=== PATIENT | female | born 1970 | race Caucasian/White ===

== ENCOUNTER 2017-01-02 20:57 | Emergency (ER) | payer MEDICAID ==
[~2017-01-02] VITALS: Ht 162.6 cm; Wt 99.8 kg
[2017-01-02 21:18] VITALS: BP_SYST 153
[2017-01-02 22:00] VITALS: BP_SYST 139
== END 2017-01-02 22:00 | disposition home or self-care (01) ==
LOC: SED 20:57
DX: L50.9 Urticaria, unspecified (principal); B36.0 Pityriasis versicolor; F41.9 Anxiety disorder, unspecified; I10 Essential (primary) hypertension; Z90.710 Acquired absence of both cervix and uterus; Z88.1 Allergy status to other antibiotic agents
CPT/HCPCS: 99283

== ENCOUNTER 2019-07-01 17:06 | Emergency (ER) | payer MEDICAID ==
[~2019-07-01] VITALS: Ht 162.6 cm; Wt 101.2 kg
[2019-07-01 17:20] VITALS: BP_SYST 153
--- NOTE | 2019-07-01 17:28 | NUR ---
Patient triaged and placed in waiting room. VSS and patient appears in no acute distress at this time. Accompanied by self, awaiting available bed, and MD notified of need for MSE.
--- NOTE | 2019-07-01 17:35 | NUR ---
Patient to ER bed 08 for evaluation. Side rails up.
--- NOTE | 2019-07-01 17:37 | NUR ---
Pt AAOx4 ambulated into ED c/o chest congestion, sinus headache, productive cough x 1 week, new onset decreased appetite, has been taking tramadol with relief. Denies N/V/D/abd pain. No other injuries/complaints per pt/noted. Will continue to monitor.
--- NOTE | 2019-07-01 17:40 | NUR ---
ER Dr. Rosales at bedside examining patient.
[2019-07-01] MEDS ORDERED: ALBUTEROL SULFATE 0.083% 2.5 MG/3 ML VIAL.NEB INH ONE (17:45)
[2019-07-01] MEDS ORDERED: IPRATROPIUM BROM 0.5 MG/2.5 ML VIAL.NEB (ATROVENT) INH ONE (17:45)
--- NOTE | 2019-07-01 17:50 | NUR ---
flu swab collected and sent to the lab.
--- NOTE | 2019-07-01 18:10 | NUR ---
pt getting breathing tx.
--- NOTE | 2019-07-01 19:00 | NUR ---
Report given to Silvio LUND. Pt is in stable condition
[2019-07-01 19:17] VITALS: BP_SYST 133
--- NOTE | 2019-07-01 19:17 | NUR ---
Patient given written and verbal discharge instructions and verbalizes understanding. ER MD discussed with patient the results and treatment provided. Patient in stable condition. ID arm band removed. Rx of Tessalon and Guaifenesin given. Patient educated on pain management and to follow up with PMD. Pain Scale 0. Opportunity for questions provided and answered. Medication side effect fact sheet provided.
== END 2019-07-01 19:17 | disposition home or self-care (01) ==
LOC: SED 17:06
DX: J06.9 Acute upper respiratory infection, unspecified (principal); J45.909 Unspecified asthma, uncomplicated; I10 Essential (primary) hypertension; F32.9 Major depressive disorder, single episode, unspecified; F41.9 Anxiety disorder, unspecified; Z90.710 Acquired absence of both cervix and uterus; Z98.890 Other specified postprocedural states; Z88.1 Allergy status to other antibiotic agents; Z88.6 Allergy status to analgesic agent; Z88.8 Allergy status to other drugs, medicaments and biological substances; Z88.7 Allergy status to serum and vaccine
CPT/HCPCS: 71046; 86710; 93005; 94640; 99284; J7613; 36415

== ENCOUNTER 2019-08-25 20:26 | Emergency (ER) | payer MEDICAID ==
[~2019-08-25] VITALS: Ht 162.6 cm; Wt 102.5 kg
[2019-08-25 20:51] VITALS: BP_SYST 163
--- NOTE | 2019-08-25 20:57 | NUR ---
Patient triaged and placed in waiting room. VSS and patient appears in no acute distress at this time. Accompanied by daughter, awaiting available bed, and MD notified of need for MSE.
--- NOTE | 2019-08-25 22:57 | NUR ---
Pt ambulatory to bed 2 for evaluation
--- NOTE | 2019-08-25 23:00 | NUR ---
Dr. Gallardo bedside for pt eval
--- NOTE | 2019-08-25 23:10 | NUR ---
Pt BIB family to ED with history of asthma and fibromyalgia C/O 3 day history of gradual onset, mild sinus pressure. Symptoms associated with cough, bilateral ear pain and headache. Patient reports that she had nausea and vomiting several days ago but states that his symptoms have improved. Patient takes Tramadol for her fibromyalgia No other complaints noted VSS no s/s of acute distress Resting on gurney rails up
[2019-08-25] MEDS ORDERED: KETOROLAC TROMETHAMINE 60 MG/2 ML VIAL IM ONE (23:45)
[2019-08-25] MEDS ORDERED: PREDNISONE 20 MG TABLET PO ONE (23:45)
[2019-08-26 00:20] VITALS: BP_SYST 145
--- NOTE | 2019-08-26 00:20 | NUR ---
Patient given written and verbal discharge instructions and verbalizes understanding. ER MD discussed with patient the results and treatment provided. Patient in stable condition. ID arm band removed. Rx of Albuterol Syrup, Prednisone, Zithromax and Tylenol with Codeine given. Patient educated on pain management and to follow up with PMD. Pain Scale 0/10 Opportunity for questions provided and answered. Medication side effect fact sheet provided.
== END 2019-08-26 00:20 | disposition home or self-care (01) ==
LOC: SED 20:26
DX: J32.9 Chronic sinusitis, unspecified (principal); J06.9 Acute upper respiratory infection, unspecified; R51 Headache; J45.909 Unspecified asthma, uncomplicated; I10 Essential (primary) hypertension; N28.9 Disorder of kidney and ureter, unspecified; F41.9 Anxiety disorder, unspecified; Z88.6 Allergy status to analgesic agent; Z88.1 Allergy status to other antibiotic agents
CPT/HCPCS: 86710; 99283; J7512; 36415; J1885

== ENCOUNTER 2020-01-19 20:30 | Emergency (ER) | payer MEDICAID ==
[~2020-01-19] VITALS: Ht 167.6 cm; Wt 104.3 kg
[2020-01-19 20:45] VITALS: BP_SYST 146
--- NOTE | 2020-01-19 20:50 | NUR ---
Patient to ER H2 for evaluation.
--- NOTE | 2020-01-19 20:55 | NUR ---
Pt C/O back and abdominal pain S/P fall yesterday evening. Pt denies any LOC, headache, nausea or vomiting. Pt is ambulatory and states pain is progressively worse this evening. Reports taking Martin prior to arrival.
--- NOTE | 2020-01-19 20:58 | NUR ---
ER Dr. Rosales at bedside examining patient.
--- NOTE | 2020-01-19 21:00 | NUR ---
# 20 gauge angiocath placed to LT AC. Use of asceptic technique. Opsite placed over site. Blood return noted. Blood for lab drawn from site. Flushed with 10 cc of normal saline. No evidence of infiltration noted. Patient tolerated well.
[2020-01-19 21:05] LABS: BASOPHILS % (AUTO) 0.3 % (0.0-2.0); EOSINOPHILS # (AUTO) 0.3 K/uL (0.0-0.4); EOSINOPHILS % (AUTO) 2.2 % (0.0-4.0); HEMATOCRIT 41.1 % (36-48); HEMOGLOBIN 13.7 g/dL (12.0-16.0); LYMPHOCYTES # (AUTO) 3.1 K/uL (1.0-5.5); LYMPHOCYTES % (AUTO) 27.8 % (20.5-51.5); MEAN CORPUSCULAR HEMOGLOBIN 33 pg (27-31); MEAN CORPUSCULAR HGB CONC 33 % (32-36); MEAN CORPUSCULAR VOLUME 98 fL (79.0-98.0); MONOCYTES # (AUTO) 0.8 K/uL (0.0-1.0); MONOCYTES % (AUTO) 6.9 % (1.7-9.3); NEUTROPHILS # (AUTO) 7.1 K/uL (1.8-7.7); NEUTROPHILS % (AUTO) 62.8 % (40.0-70.0); PLATELET COUNT (AUTO) 296 K/uL (130-430); RED BLOOD CELL COUNT(AUTO) 4.21 MIL/uL (4.2-6.2); RED CELL DISTRIBUTION WIDTH 12.8 % (9.0-15.0); WHITE BLOOD COUNT (AUTO) 11.3 K/uL (4.8-10.8)
[2020-01-19] MEDS ORDERED: IOHEXOL 100 ML IV ONE (21:18)
[2020-01-19 21:23] LABS: CALCIUM 10.8 mg/dL (8.4-11.0); CREATININE 1.01 mg/dL (0.55-1.30); POTASSIUM 3.2 mmol/L (3.5-5.1)
--- NOTE | 2020-01-19 22:00 | NUR ---
Pt is sitting comfortably in chair, will continue to monitor.
--- NOTE | 2020-01-19 23:45 | NUR ---
MD Rosales discussing results with patient
[2020-01-20 00:12] VITALS: BP_SYST 138
== END 2020-01-20 00:12 | disposition home or self-care (01) ==
LOC: SED 20:30
DX: S32.018A Other fracture of first lumbar vertebra, initial encounter for closed fracture (principal); S32.028A Other fracture of second lumbar vertebra, initial encounter for closed fracture; J45.909 Unspecified asthma, uncomplicated; I10 Essential (primary) hypertension; F41.9 Anxiety disorder, unspecified; N28.9 Disorder of kidney and ureter, unspecified; Z88.1 Allergy status to other antibiotic agents; Z88.6 Allergy status to analgesic agent; Z88.8 Allergy status to other drugs, medicaments and biological substances; W01.0XXA Fall on same level from slipping, tripping and stumbling without subsequent striking against object, initial encounter; Y93.89 Activity, other specified; Y92.89 Other specified places as the place of occurrence of the external cause; Y99.8 Other external cause status
CPT/HCPCS: 36415; 72128; 72131; 74177; 80048; 85025; 99285; Q9967

== ENCOUNTER 2021-01-22 22:06 | Emergency (ER) | payer MEDICAID ==
[~2021-01-22] VITALS: Ht 162.6 cm; Wt 104.3 kg
[2021-01-22 22:12] VITALS: BP_SYST 159
[2021-01-23 02:30] VITALS: BP_SYST 159
== END 2021-01-23 02:30 | disposition home or self-care (01) ==
LOC: SED 22:06
DX: S83.92XA Sprain of unspecified site of left knee, initial encounter (principal); S93.402A Sprain of unspecified ligament of left ankle, initial encounter; S70.02XA Contusion of left hip, initial encounter; I10 Essential (primary) hypertension; J45.909 Unspecified asthma, uncomplicated; Z88.1 Allergy status to other antibiotic agents; Z88.6 Allergy status to analgesic agent; Z88.8 Allergy status to other drugs, medicaments and biological substances; V03.90XA Pedestrian on foot injured in collision with car, pick-up truck or van, unspecified whether traffic or nontraffic accident, initial encounter; Y93.89 Activity, other specified; Y92.89 Other specified places as the place of occurrence of the external cause; Y99.8 Other external cause status
CPT/HCPCS: 72170-TC; 73552; 73564; 73590-TC; 99284

== ENCOUNTER 2021-01-26 17:43 | Emergency (ER) | payer MEDICAID ==
[~2021-01-26] VITALS: Ht 162.6 cm; Wt 104.3 kg
[2021-01-26 17:43] VITALS: BP_SYST 161
[2021-01-26 19:01] LABS: BASOPHILS # (AUTO) 0.1 K/uL (0.0-0.2); BASOPHILS % (AUTO) 0.6 % (0.0-2.0); EOSINOPHILS # (AUTO) 0.2 K/uL (0.0-0.4); EOSINOPHILS % (AUTO) 2.2 % (0.0-4.0); HEMATOCRIT 40.4 % (36-48); HEMOGLOBIN 13.9 g/dL (12.0-16.0); LYMPHOCYTES # (AUTO) 2.7 K/uL (1.0-5.5); LYMPHOCYTES % (AUTO) 26.3 % (20.5-51.5); MEAN CORPUSCULAR HEMOGLOBIN 33 pg (27-31); MEAN CORPUSCULAR HGB CONC 34 % (32-36); MEAN CORPUSCULAR VOLUME 96 fL (79.0-98.0); MONOCYTES # (AUTO) 0.9 K/uL (0.0-1.0); MONOCYTES % (AUTO) 8.9 % (1.7-9.3); NEUTROPHILS # (AUTO) 6.3 K/uL (1.8-7.7); PLATELET COUNT (AUTO) 315 K/uL (130-430); RED BLOOD CELL COUNT(AUTO) 4.22 MIL/uL (4.2-6.2); RED CELL DISTRIBUTION WIDTH 12.9 % (9.0-15.0); WHITE BLOOD COUNT (AUTO) 10.2 K/uL (4.8-10.8)
[2021-01-26 19:20] LABS: CALCIUM 10.3 mg/dL (8.4-11.0); CREATININE 0.83 mg/dL (0.55-1.30); POTASSIUM 4.1 mmol/L (3.5-5.1)
[2021-01-26 19:24] LABS: INR 0.9 (0.8-1.2); PROTHROMBIN TIME 9.8 SECS (9.5-12.5)
[2021-01-26 19:26] LABS: ALBUMIN 3.4 g/dL (3.4-4.8); TOTAL BILIRUBIN 0.2 mg/dL (0.0-1.0)
[2021-01-26 19:48] LABS: C-REACTIVE PROTEIN QUANT 2.5 mg/dL (0-0.5)
[2021-01-26 20:45] VITALS: BP_SYST 161
== END 2021-01-26 20:45 | disposition home or self-care (01) ==
LOC: SED 17:43
DX: S92.322A Displaced fracture of second metatarsal bone, left foot, initial encounter for closed fracture (principal); I10 Essential (primary) hypertension; J45.909 Unspecified asthma, uncomplicated; Z88.1 Allergy status to other antibiotic agents; Z88.6 Allergy status to analgesic agent; Z88.7 Allergy status to serum and vaccine; W22.8XXA Striking against or struck by other objects, initial encounter; Y93.89 Activity, other specified; Y92.89 Other specified places as the place of occurrence of the external cause; Y99.8 Other external cause status
CPT/HCPCS: 36415; 80053; 83605; 85025; 85610-TC; 85730-TC; 86140; 93971; 99284

== ENCOUNTER 2021-11-21 16:41 | Emergency (ER) | payer MEDICAID ==
[~2021-11-21] VITALS: Ht 162.6 cm; Wt 106.6 kg
[2021-11-21 16:56] VITALS: BP_SYST 123
[2021-11-21] MEDS ORDERED: IPRATROPIUM BROM 0.5 MG/2.5 ML VIAL.NEB (ATROVENT) INH ONE (17:15)
[2021-11-21] MEDS ORDERED: predniSONE 20 MG TABLET PO ONE (17:15)
[2021-11-21] MEDS ORDERED: ALBUTEROL SULFATE 0.083% 2.5 MG/3 ML VIAL.NEB INH ONE (17:15)
[2021-11-21] MEDS ORDERED: PRED20TA PO (17:54)
[2021-11-21 18:05] VITALS: BP_SYST 123
== END 2021-11-21 18:05 | disposition home or self-care (01) ==
LOC: SED 16:41
DX: J45.901 Unspecified asthma with (acute) exacerbation (principal); I10 Essential (primary) hypertension; Z88.1 Allergy status to other antibiotic agents; Z88.6 Allergy status to analgesic agent; Z88.8 Allergy status to other drugs, medicaments and biological substances; Z79.899 Other long term (current) drug therapy
CPT/HCPCS: 71046; 94640; 94760; 99283; J7512; J7613

== ENCOUNTER 2022-01-25 22:59 | Inpatient (IN) | payer MEDICAID ==
[~2022-01-25] VITALS: Ht 162.6 cm; Wt 97.5 kg
[~2022-01-25 22:59] MED LIST: PRED20TA PO
[2022-01-25 23:10] VITALS: BP_SYST 178
--- NOTE | 2022-01-25 23:10 | NUR ---
Pt arrives per BLS, placed to ER bed 02, to gown and clinical research monitor. Pt from home with c/o N/V with H/A progressively worsening since surgery last month to drain CSF at base of neck at [facility]. Pt AAOx4 with no focal neurodeficits noted. B/P 178/101. Pt with hx HTN, unable to keep B/P meds down r/t vomiting.
--- NOTE | 2022-01-25 23:25 | NUR ---
Dr. Rosales at bedside to assess pt.
[2022-01-25] MEDS ORDERED: MORPHINE 4 MG INJ. 4 MG/ML VIAL IVP ONE (23:45)
[2022-01-25] MEDS ORDERED: ONDANSETRON HCL 4 MG/2 ML VIAL ONE (23:55)
--- NOTE | 2022-01-26 00:34 | NUR ---
Contacted [facility] ([phone]), spoke with KEVON Chun on M/S unit. Exchange number obtained for Dr. Hero Garza, Neurosurgeon who performed procedure on pt. [phone]
[2022-01-26] MEDS ORDERED: METOCLOPRAMIDE HCL 10 MG/2 ML VIAL IVP ONE (00:45)
[2022-01-26 00:59] LABS: HEMOGLOBIN 15.9 g/dL (12.0-16.0)
[2022-01-26 01:01] LABS: CALCIUM 11.1 mg/dL (8.4-11.0); CREATININE 0.92 mg/dL (0.55-1.30)
[2022-01-26 01:07] LABS: ALBUMIN 3.9 g/dL (3.4-4.8); TOTAL BILIRUBIN 0.5 mg/dL (0.0-1.0)
[2022-01-26 01:10] LABS: INR 1.1 (0.8-1.2); PROTHROMBIN TIME 10.8 SECS (9.5-12.5)
[2022-01-26 01:16] LABS: POTASSIUM 2.9 mmol/L (3.5-5.1)
[2022-01-26 01:26] LABS: BASOPHILS # (AUTO) 0.1 K/uL (0.0-0.2); BASOPHILS % (AUTO) 0.5 % (0.0-2.0); EOSINOPHILS # (AUTO) 0.1 K/uL (0.0-0.4); EOSINOPHILS % (AUTO) 0.5 % (0.0-4.0); HEMATOCRIT 45.8 % (36-48); LYMPHOCYTES # (AUTO) 1.7 K/uL (1.0-5.5); LYMPHOCYTES % (AUTO) 14.3 % (20.5-51.5); MEAN CORPUSCULAR HEMOGLOBIN 33 pg (27-31); MEAN CORPUSCULAR HGB CONC 35 % (32-36); MEAN CORPUSCULAR VOLUME 96 fL (79.0-98.0); MONOCYTES # (AUTO) 0.8 K/uL (0.0-1.0); NEUTROPHILS % (AUTO) 77.7 % (40.0-70.0); PLATELET COUNT (AUTO) 306 K/uL (130-430); RED BLOOD CELL COUNT(AUTO) 4.77 MIL/uL (4.2-6.2); RED CELL DISTRIBUTION WIDTH 13.3 % (9.0-15.0); WHITE BLOOD COUNT (AUTO) 11.6 K/uL (4.8-10.8)
[2022-01-26] MEDS ORDERED: MAGNESIUM SULFATE 50 ML IV ONE (01:30)
[2022-01-26] MEDS ORDERED: KCL 40 mEq in 100 mL (PREMIX) 100 ML IV ONE (01:30)
[2022-01-26] MEDS ORDERED: KCL 20 mEq in 100 mL (PREMIX) 200 ML IV ONE (01:59)
--- NOTE | 2022-01-26 02:39 | NUR ---
Manufacturing Process Engineer calls exchange for Dr. Rosales to speak with Neurosurgeon. Dr. Mcnair manager investigations. Awaiting call back.
--- NOTE | 2022-01-26 02:45 | NUR ---
Dr. Rosales on phone with Dr. Mcnair. Per conversation, Dr. 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
--- NOTE | 2022-01-26 03:00 | NUR ---
Three unsuccessful PIV attempts to LFA in attempts to establish second line. Magnesium Sulfate 2 Grams continues to infuse to 20 GA PIV LAC without difficulty.
[2022-01-26] MEDS ORDERED: NACL 0.9% 1,000 ML IV ONE (03:15)
--- NOTE | 2022-01-26 03:15 | NUR ---
Note darlene in EDM - 01/26/22 at 0447 by SDEDAJ Potassium Chloride 40 mEq IVPB not available. 1st bag KCL 20 mEq 100 mL IVPB now infusing at 35 mL/hr to patent and secure PIV RAC, no s/s infiltration.
--- NOTE | 2022-01-26 03:15 | NUR ---
NS 1 Liter bolus in progress per VO Dr. Rosales.
--- NOTE | 2022-01-26 03:35 | NUR ---
Pt states that N/V is triggered with movement, especially when drinking fluids. She states as long as she doesn't change positions while drinking, she is fine. Dr. Bobby arana.
--- NOTE | 2022-01-26 03:39 | NUR ---
Pt requests ice water. She denies c/o nausea. Dr. Rosales notified, okay to give pt water.
[2022-01-26] MEDS ORDERED: HYDROmorphone 1 MG/ML INJ. CARTRIDGE IVP ONE (04:00)
--- NOTE | 2022-01-26 04:10 | NUR ---
Dr. Rosales at bedside to reassess pt and update on POC.
--- NOTE | 2022-01-26 04:20 | NUR ---
Potassium Chloride 40 mEq IVPB not available. 1st bag KCL 20 mEq 100 mL IVPB now infusing at 35 mL/hr to patent and secure PIV RAC, no s/s infiltration.
--- NOTE | 2022-01-26 04:30 | NUR ---
Pt able to tolerate 2 cups ice water without difficulty. Pt also verbalizes mild improvement 7/10 in H/A s/p dilaudid administration. Dr. Rosales made aware.
--- NOTE | 2022-01-26 04:47 | NUR ---
Pt c/o burning to RAC. No s/s infiltration, patent with good blood return. KCl 20 mEq IVPB rate decreased to 25 mL/hr, ice pack applied to PIV site. Pt verbalizes improvement in symptoms.
--- NOTE | 2022-01-26 04:50 | NUR ---
B/P 206/124. Pt states that she takes Amlodipine 2.5 mg PO q HS for HTN, but last dose about 2 days ago r/t vomiting. Dr. Rosales notified.
[2022-01-26] MEDS ORDERED: amLODIPine BESYLATE 5 MG TABLET ONE (04:58)
--- NOTE | 2022-01-26 05:00 | NUR ---
Pt medicated with Amlodipin 2.5 mg PO per VO Dr. Rosales. Pt continues to c/o H/A but verbalizes improvement. Pt more conversative. Pt also states that burning to RAC feels much better since application of ice pack. PIV site patent, secure, good blood return, no s/s infiltration to site. KCl 20 mEq continues to infuse at 25 mL/hr.
--- NOTE | 2022-01-26 06:29 | NUR ---
Pt B/P continues to be elevated 159/102. Pt states H/A 03/17 and states improvement to discomfort to RAC. Second bag KCl 20 mEq IVPB now infusing at 25 mL/hr. Dr. Olivera made aware.
--- NOTE | 2022-01-26 06:44 | NUR ---
HR 54, B/P 182/99. Pt resting quietly, easily awakened, no changes in cognitive status, no focal neurodeficits. Dr. Olivera made aware.
[2022-01-26] MEDS ORDERED: hydrALAZINE HCL 20 MG/ML VIAL IVP ONE (06:45)
[2022-01-26] MEDS ORDERED: ENALAPRILAT DIHYDRATE 1.25 MG/ML VIAL IVP ONE (06:45)
[2022-01-26] MEDS ORDERED: LABETALOL HCL 20 MG/4 ML CARTRIDGE IVP ONE (06:45)
[2022-01-26 06:55] LABS: BILIRUBIN,URINE NEGATIVE (NEGATIVE); BLOOD, URINE 1+ (NEGATIVE); CLARITY/URINE CLEAR (CLEAR); COLOR,URINE YELLOW (YELLOW); GLUCOSE,URINE NEGATIVE (NEGATIVE); KETONES,URINE TRACE (NEGATIVE); LEUKOCYTE ESTERASE ,URINE 1+ (NEGATIVE); NITRITE, URINE POSITIVE (NEGATIVE); PROTEIN URINE NEGATIVE (NEGATIVE); UROBILINOGEN,URINE 0.2 (0.2-1.0)
--- NOTE | 2022-01-26 07:10 | NUR ---
Pt care endorsed to oncoming RN.
[2022-01-26 07:13] LABS: BACTERIA,URINE MODERATE /HPF (None Seen); RBC,URINE 20-50 /HPF (0-3); WBC,URINE 80-100 /HPF (0-3)
[2022-01-26 07:14] LABS: MUCUS,URINE 1+ /LPF (None Seen)
[2022-01-26] MEDS ORDERED: cefTRIAXone 1 GM IVPB PREMIX 50 ML IV ONE (07:15)
--- NOTE | 2022-01-26 07:30 | NUR ---
Received report from Ross LUND; assumed care at this time.
--- NOTE | 2022-01-26 07:30 | NUR ---
Patient A/Ox4, resp even and unlabored. Patient resting comfortably in bed with side rails raised. Nad noted at this time. Will continue to monitor.
[2022-01-26] MEDS ORDERED: ONDANSETRON HCL 4 MG/2 ML VIAL IVP ONE ×2 (07:45)
--- NOTE | 2022-01-26 08:05 | NUR ---
Admit bed requested Patient will be admitted to care of . Admitted to TELEMETRY unit. Diagnosis PYELONEPHRITIS Inpatient (Yes or No) Observation (Yes or No) NO Orientation concerns or request close to nursing station (Yes or No) NO Covid Status PENDING On vent or bipap NO Isolation requirements NO Needs a sitter NO From Home (Yes or if No enter name of facility) HOME Requires Dialysis (Yes or No) NO Med Rec Completed (Yes of No) YES
[2022-01-26] MEDS ORDERED: BUSP30TA2 PO (08:17)
[2022-01-26] MEDS ORDERED: BUPR75TA20 PO (08:17)
[2022-01-26] MEDS ORDERED: AMLO2.5T2 PO (08:17)
[2022-01-26] MEDS ORDERED: HYDR12.55 PO (08:17)
[2022-01-26] MEDS ORDERED: MORPHINE 4 MG INJ. 4 MG/ML VIAL IVP ONE (08:30)
--- NOTE | 2022-01-26 08:50 | NUR ---
Lab at bedside.
--- NOTE | 2022-01-26 10:00 | NUR ---
Patient resting comfortably in bed with side rails raised. Patient given ice pack as requested. Patient A/Ox4, VSS, resp even and unlabored. NAD noted at this time. Will continue to monitor.
--- NOTE | 2022-01-26 10:25 | NUR ---
Cardiology MD Stephens at bedside.
[2022-01-26] MEDS: D5/0.45 NS 1,000 ML IV SCH ×2 (10:49→17:44)
--- NOTE | 2022-01-26 10:49 | NUR ---
Multiple attempts made to start a new IV start for Rocephin; all attempts were unsuccesful.
--- NOTE | 2022-01-26 11:05 | NUR ---
Patient transferred to tele room 128A without incident. Report given to Lori LUND, assumed all patient care at this time. IV med Rocephin endorsed during report. Nad noted at this time.
--- NOTE | 2022-01-26 11:10 | NUR ---
Admission notes received pt from [facility] with diagnosis of vomiting, pt is under the care of dr clifton ortega, pt vitals wnl. pt educated on the use of call light and bed controls, encouraged to call for assist , pain or any concerns.
--- NOTE | 2022-01-26 11:15 | NUR ---
ADMISSION NOTE Received patient from ER via gurney. Patient admitted with diagnosis of pyelonephritis/ hypertension. Patient is awake, alert, oriented X 4. Patient oriented to hospital room, call light, toileting, pain management and safety-teach back done. Patient informed that their room number is 128A. Personal belongings checked and Belongings List documented. Call light within reach.
--- NOTE | 2022-01-26 11:31 | NUR ---
DR CARBAJAL, CARDIOLOGY CONSULT IS AWARE OF THE CONSULT.
--- NOTE | 2022-01-26 11:34 | NUR ---
CONSULTATION PAGED/CALLED Reason for Consultation: [] KIDNEY INFECTION Person Who was Notified: [] [place] Consulting Physician: [] DR RICKY MARQUES Naval Aircrewman Helicopter Specialty: [] ID Ordering Physician: [] DR HERNANDEZ
[2022-01-26 11:40] VITALS: BP_SYST 120
[2022-01-26] MEDS ORDERED: NALOXONE HCL 0.4 MG/ML AMP (NARCAN) IVP PRN ×3 (13:00)
[2022-01-26] MEDS ORDERED: ACETAMINOPHEN 325 MG TABLET PO PRN (13:00)
[2022-01-26] MEDS ORDERED: cefTRIAXone 1 GM IVPB PREMIX 50 ML IV SCH (13:00)
[2022-01-26] MEDS ORDERED: HYDROcodone/ACETAMIN 5-325 MG TAB (NORCO/ VICODIN) PO PRN (13:00)
[2022-01-26] MEDS ORDERED: MORPHINE 2 MG/ML INJ. SYRINGE IVP PRN (13:00)
--- NOTE | 2022-01-26 15:15 | NUR ---
CONSULTATION PAGED/CALLED Reason for Consultation: [] N/V Person Who was Notified: [] AYSE Consulting Physician: [] DR VIDAL Air Quality Engineer Specialty: [] GI Ordering Physician: [] DR HERNANDEZ
--- NOTE | 2022-01-26 15:26 | NUR ---
CONSULTATION PAGED/CALLED Reason for Consultation: [] HEADACHE Person Who was Notified: [] DR Ale DELACRUZ Consulting Physician: [] DR Ale DELACRUZ Supervisor Assembly Specialty: [] NEURO Ordering Physician: [] DR HERNANDEZ
[2022-01-26] MEDS: ONDANSETRON HCL 4 MG/2 ML VIAL IVP PRN ×2 (17:01→21:08)
[2022-01-26] MEDS: MORPHINE 4 MG INJ. 4 MG/ML VIAL IVP PRN ×2 (17:12→21:11)
[2022-01-26 17:30] VITALS: BP_SYST 145
--- NOTE | 2022-01-26 18:50 | NUR ---
CLOSING NOTES: PATIENT RESTING IN BED. NO S/S OF ACUTE DISTRESS NOTED. FALL AND SAFETY MEASURES PROVIDED. CALL LIGHT WITHIN REACH. NEEDS MET THROUGHOUT SHIFT.
[2022-01-26 20:09] VITALS: BP_SYST 155
[2022-01-27] VITALS: BP_SYST 155
[2022-01-27] MEDS: ONDANSETRON HCL 4 MG/2 ML VIAL IVP PRN ×4 (01:39→19:58)
[2022-01-27] MEDS: MORPHINE 4 MG INJ. 4 MG/ML VIAL IVP PRN ×5 (01:41→20:04)
[2022-01-27] MEDS: D5/0.45 NS 1,000 ML IV SCH ×2 (03:41→14:04)
--- NOTE | 2022-01-27 05:06 | NUR ---
CLOSING NOTE- PT AWAKE AND ORIENTED. C/O HEADACHE AND NAUSEA. MEDICATED MORPHINE 4 MG IVP AND ZOFRAN 4 MG IVP EVERY 4HR PRN. ALSO APPLIED ICD BAG ON HEAD. SKIN DRY AND INTACT. V/S STABLE AFEBRILE .TELE- SR. PT SEEN BY DR MARQUES. Addendum: 01/27/22 at 0648 by [facility] product specialist PT AMBULATED WITH MODERATE ASSIST TO GO RESTROOM. VOIDED X 1 -ODOROUS CLOUDY YELLOW URINE. ALSO C/O NAUSEA/VOMITING X 1 AFTER MOVEMENT. MEDICATED ZOFRAN AND MORPHINE. NOTICED UNHEALED OPEN WOUND ON BEHIND NECK. 1 X 1 CM YELLOWISH OPEN WOUND. CLEANED WITH BETADINE AND APPLIED BANDAGE.
[2022-01-27 07:40] LABS: BASOPHILS # (AUTO) 0.1 K/uL (0.0-0.2); BASOPHILS % (AUTO) 0.7 % (0.0-2.0); EOSINOPHILS # (AUTO) 0.1 K/uL (0.0-0.4); EOSINOPHILS % (AUTO) 0.8 % (0.0-4.0); HEMATOCRIT 45.4 % (36-48); HEMOGLOBIN 15.3 g/dL (12.0-16.0); LYMPHOCYTES # (AUTO) 2.9 K/uL (1.0-5.5); LYMPHOCYTES % (AUTO) 25.7 % (20.5-51.5); MEAN CORPUSCULAR HEMOGLOBIN 33 pg (27-31); MEAN CORPUSCULAR HGB CONC 34 % (32-36); MONOCYTES # (AUTO) 1.1 K/uL (0.0-1.0); MONOCYTES % (AUTO) 9.9 % (1.7-9.3); NEUTROPHILS # (AUTO) 7.1 K/uL (1.8-7.7); NEUTROPHILS % (AUTO) 62.9 % (40.0-70.0); PLATELET COUNT (AUTO) 315 K/uL (130-430); RED BLOOD CELL COUNT(AUTO) 4.63 MIL/uL (4.2-6.2); RED CELL DISTRIBUTION WIDTH 13.6 % (9.0-15.0); WHITE BLOOD COUNT (AUTO) 11.3 K/uL (4.8-10.8)
[2022-01-27 07:45] LABS: CALCIUM 10.5 mg/dL (8.4-11.0); CREATININE 0.75 mg/dL (0.55-1.30); POTASSIUM 3.7 mmol/L (3.5-5.1)
[2022-01-27 08:00] VITALS: BP_SYST 160
[2022-01-27] MEDS ORDERED: SUMAtriptan SUCCINATE 50 MG TABLET PO ONE (08:15)
[2022-01-27] MEDS ORDERED: predniSONE 20 MG TABLET PO SCH (09:00)
[2022-01-27] MEDS: HYDROCHLOROTHIAZIDE 12.5 MG CAPSULE (HCTZ) PO SCH (10:05)
[2022-01-27] MEDS: busPIRone HCL 5 MG TABLET PO SCH (10:05)
[2022-01-27] MEDS: amLODIPine BESYLATE 5 MG TABLET PO SCH (10:05)
[2022-01-27] MEDS: buPROPion HCL 75 MG TABLET PO SCH (10:05)
[2022-01-27] MEDS: HYDROcodone/ACETAMIN 10-325 MG TAB PO PRN (10:06)
[2022-01-27 11:34] VITALS: BP_SYST 158
[2022-01-27 12:22] LABS: MEAN CORPUSCULAR VOLUME 98 fL (79.0-98.0)
--- NOTE | 2022-01-27 13:00 | NUR ---
Daughter at the bedside, pt more cooperative with care. pt ambulated with daughter to the bathroom and washed up. Continue with IVF at 100ml/hr, IV site patent w/o signs of infiltration. Will continue to monitor pt closely.
[2022-01-27] MEDS: LORazepam 2 MG/ML VIAL IVP PRN (13:25)
[2022-01-27 15:56] VITALS: BP_SYST 134
[2022-01-28] VITALS: BP_SYST 145
[2022-01-28 00:09] VITALS: BP_SYST 139
[2022-01-28] MEDS: MORPHINE 4 MG INJ. 4 MG/ML VIAL IVP PRN ×3 (01:56→14:56)
[2022-01-28] MEDS: ONDANSETRON HCL 4 MG/2 ML VIAL IVP PRN ×4 (01:56→23:58)
[2022-01-28] MEDS: D5/0.45 NS 1,000 ML IV SCH ×3 (04:41→20:40)
[2022-01-28 06:38] LABS: BASOPHILS # (AUTO) 0.1 K/uL (0.0-0.2); BASOPHILS % (AUTO) 0.8 % (0.0-2.0); EOSINOPHILS # (AUTO) 0.1 K/uL (0.0-0.4); EOSINOPHILS % (AUTO) 0.7 % (0.0-4.0); HEMATOCRIT 41.1 % (36-48); HEMOGLOBIN 14.1 g/dL (12.0-16.0); LYMPHOCYTES # (AUTO) 1.2 K/uL (1.0-5.5); LYMPHOCYTES % (AUTO) 14.6 % (20.5-51.5); MEAN CORPUSCULAR HEMOGLOBIN 33 pg (27-31); MEAN CORPUSCULAR HGB CONC 34 % (32-36); MEAN CORPUSCULAR VOLUME 97 fL (79.0-98.0); MONOCYTES # (AUTO) 0.4 K/uL (0.0-1.0); MONOCYTES % (AUTO) 5.4 % (1.7-9.3); NEUTROPHILS # (AUTO) 6.3 K/uL (1.8-7.7); NEUTROPHILS % (AUTO) 78.5 % (40.0-70.0); PLATELET COUNT (AUTO) 249 K/uL (130-430); RED BLOOD CELL COUNT(AUTO) 4.24 MIL/uL (4.2-6.2); RED CELL DISTRIBUTION WIDTH 13.4 % (9.0-15.0)
[2022-01-28 06:47] LABS: ANION GAP 6 (5-15); CALCIUM 9.9 mg/dL (8.4-11.0); CHLORIDE 102 mmol/L (98-107); CREATININE 0.68 mg/dL (0.55-1.30); GLUCOSE 140 mg/dL (70-99); POTASSIUM 3.3 mmol/L (3.5-5.1); SODIUM SERUM 139 mmol/L (136-145); UREA NITROGEN, BLOOD 6 mg/dL (8-21)
[2022-01-28] MEDS: amLODIPine BESYLATE 5 MG TABLET PO SCH (07:59)
[2022-01-28 08:00] VITALS: BP_SYST 150; BP_SYST 152
[2022-01-28 08:28] LABS: C-REACTIVE PROTEIN QUANT < 0.2 mg/dL (0-0.5); GFR AFRICAN AMERICAN 117 mL/min (>90)
[2022-01-28] MEDS: HYDROCHLOROTHIAZIDE 12.5 MG CAPSULE (HCTZ) PO SCH (09:00)
[2022-01-28] MEDS: busPIRone HCL 5 MG TABLET PO SCH (09:00)
[2022-01-28] MEDS: buPROPion HCL 75 MG TABLET PO SCH (09:00)
[2022-01-28] MEDS ORDERED: SUMAtriptan SUCCINATE 6 MG/0.5 ML VIAL SUBCUT ONE (11:15)
[2022-01-28 11:18] LABS: WHITE BLOOD COUNT (AUTO) 8.1 K/uL (4.8-10.8)
[2022-01-28 12:00] VITALS: BP_SYST 159
[2022-01-28] MEDS ORDERED: POTASSIUM CHLORIDE 20 MEQ TAB.PRT.SR PO ONE (12:15)
[2022-01-28 12:42] LABS: ERYTHROCYTE SEDIMENTATION RATE 14 MM/HR (0-20)
[2022-01-28] MEDS: LORazepam 2 MG/ML VIAL IVP PRN (14:55)
[2022-01-28 16:00] VITALS: BP_SYST 142
[2022-01-28 20:00] VITALS: BP_SYST 162
[2022-01-29] VITALS: BP_SYST 158
[2022-01-29 04:00] VITALS: BP_SYST 149
[2022-01-29] MEDS: D5/0.45 NS 1,000 ML IV SCH ×2 (06:09→18:18)
--- NOTE | 2022-01-29 06:30 | NUR ---
PATIENT LEEP LAST NIGHT WELL. NO DISTRESS NOTED. AFEBRILE. STABLE. GIVEN WITH ZOFRAN X1 FOR NAUSEA AND MORPHINE 4 MG X1 FOR PAIN. IVF INFUSING WELL AT ORDERED RATE, SITE INTACT. NO S/S OF INFILTRATION NOTED. KEPT WARM AND COMFORTABLE. ALL NEEDS ATTENDED. CALL LIGHT PLACED WITHIN REACH. PATIENT AMBULATED TO THE BATHROOM TWICE WITH ASSIST FOR WALKER. TOLERATED WELL. MONTIORED CLOSELY.
[2022-01-29 06:49] LABS: BASOPHILS # (AUTO) 0.1 K/uL (0.0-0.2); BASOPHILS % (AUTO) 0.6 % (0.0-2.0); EOSINOPHILS # (AUTO) 0.1 K/uL (0.0-0.4); EOSINOPHILS % (AUTO) 0.6 % (0.0-4.0); HEMATOCRIT 41.6 % (36-48); HEMOGLOBIN 14.3 g/dL (12.0-16.0); LYMPHOCYTES # (AUTO) 2.2 K/uL (1.0-5.5); MEAN CORPUSCULAR HEMOGLOBIN 33 pg (27-31); MEAN CORPUSCULAR HGB CONC 35 % (32-36); MEAN CORPUSCULAR VOLUME 96 fL (79.0-98.0); MONOCYTES # (AUTO) 0.8 K/uL (0.0-1.0); MONOCYTES % (AUTO) 9.4 % (1.7-9.3); NEUTROPHILS # (AUTO) 5.6 K/uL (1.8-7.7); NEUTROPHILS % (AUTO) 64.4 % (40.0-70.0); PLATELET COUNT (AUTO) 271 K/uL (130-430); RED BLOOD CELL COUNT(AUTO) 4.34 MIL/uL (4.2-6.2); RED CELL DISTRIBUTION WIDTH 12.7 % (9.0-15.0); WHITE BLOOD COUNT (AUTO) 8.7 K/uL (4.8-10.8)
[2022-01-29] MEDS: MORPHINE 4 MG INJ. 4 MG/ML VIAL IVP PRN ×2 (06:53→20:39)
[2022-01-29 07:14] LABS: ALANINE AMINOTRANSFERASE 68 U/L (12-78); ANION GAP 7 (5-15); ASPARTATE AMINOTRANSFERASE 34 U/L (10-37); CHLORIDE 101 mmol/L (98-107); CREATININE 0.65 mg/dL (0.55-1.30); GLUCOSE 106 mg/dL (70-99); SODIUM SERUM 141 mmol/L (136-145); TOTAL BILIRUBIN 0.3 mg/dL (0.0-1.0); UREA NITROGEN, BLOOD 5 mg/dL (8-21)
[2022-01-29 07:45] VITALS: BP_SYST 161
--- NOTE | 2022-01-29 07:45 | NUR ---
Opening Note Received report from Polo LUND. Patient is laying in bed awake. A/O x4. No apparent distress noted. Vitals as charted. Call light within reach. Safety and fall precautions in place. All needs met.
[2022-01-29] MEDS: buPROPion HCL 75 MG TABLET PO SCH (08:43)
[2022-01-29] MEDS: amLODIPine BESYLATE 5 MG TABLET PO SCH (08:44)
[2022-01-29] MEDS: HYDROCHLOROTHIAZIDE 12.5 MG CAPSULE (HCTZ) PO SCH (08:44)
[2022-01-29] MEDS: SUMAtriptan SUCCINATE 50 MG TABLET PO PRN ×2 (08:45→23:42)
[2022-01-29] MEDS: busPIRone HCL 5 MG TABLET PO SCH (08:45)
[2022-01-29 09:13] LABS: ERYTHROCYTE SEDIMENTATION RATE 11 MM/HR (0-20)
[2022-01-29 09:37] LABS: C-REACTIVE PROTEIN QUANT < 0.2 mg/dL (0-0.5); GFR AFRICAN AMERICAN 123 mL/min (>90)
[2022-01-29] MEDS ORDERED: ONDANSETRON HCL 4 MG/2 ML VIAL IVP PRN (10:45)
[2022-01-29] MEDS ORDERED: POTASSIUM CHLORIDE 20 MEQ TAB.PRT.SR PO ONE (10:45)
--- NOTE | 2022-01-29 10:50 | NUR ---
Note Spoke with Simin patient's daughter. Simin states she will be by to visit her mother after she is off work. Meanwhile an update was provided.
[2022-01-29 11:25] VITALS: BP_SYST 154
[2022-01-29] MEDS: PROMETHAZINE HCL 25 MG TABLET PO SCH ×2 (13:34→21:29)
[2022-01-29 16:30] VITALS: BP_SYST 147
--- NOTE | 2022-01-29 19:11 | NUR ---
Closing Note Patient is sitting up in bed, daughter at bedside. No apparent distress noted. Call light within reach. Safety an fall precautions in place. All needs met. Will endorse care to mold shifter RN.
[2022-01-29 20:00] VITALS: BP_SYST 143
[2022-01-29] MEDS: ONDANSETRON HCL 4 MG/2 ML VIAL IVP PRN (20:38)
[2022-01-30] VITALS: BP_SYST 140
[2022-01-30] MEDS: HYDROcodone/ACETAMIN 10-325 MG TAB PO PRN ×3 (02:29→21:34)
[2022-01-30 04:00] VITALS: BP_SYST 144
[2022-01-30] MEDS: D5/0.45 NS 1,000 ML IV SCH ×3 (04:20→14:40)
[2022-01-30] MEDS: PROMETHAZINE HCL 25 MG TABLET PO SCH ×3 (05:09→21:31)
[2022-01-30 06:13] LABS: BASOPHILS # (AUTO) 0.1 K/uL (0.0-0.2); BASOPHILS % (AUTO) 0.8 % (0.0-2.0); EOSINOPHILS # (AUTO) 0.1 K/uL (0.0-0.4); EOSINOPHILS % (AUTO) 1.6 % (0.0-4.0); HEMATOCRIT 43.3 % (36-48); HEMOGLOBIN 14.8 g/dL (12.0-16.0); LYMPHOCYTES # (AUTO) 2.9 K/uL (1.0-5.5); LYMPHOCYTES % (AUTO) 31.5 % (20.5-51.5); MEAN CORPUSCULAR HEMOGLOBIN 33 pg (27-31); MEAN CORPUSCULAR HGB CONC 34 % (32-36); MEAN CORPUSCULAR VOLUME 96 fL (79.0-98.0); MONOCYTES # (AUTO) 0.9 K/uL (0.0-1.0); MONOCYTES % (AUTO) 9.5 % (1.7-9.3); NEUTROPHILS # (AUTO) 5.2 K/uL (1.8-7.7); NEUTROPHILS % (AUTO) 56.6 % (40.0-70.0); PLATELET COUNT (AUTO) 267 K/uL (130-430); RED BLOOD CELL COUNT(AUTO) 4.52 MIL/uL (4.2-6.2); RED CELL DISTRIBUTION WIDTH 13.3 % (9.0-15.0); WHITE BLOOD COUNT (AUTO) 9.2 K/uL (4.8-10.8)
[2022-01-30 06:43] LABS: CREATININE 0.74 mg/dL (0.55-1.30); GLUCOSE 123 mg/dL (70-99); UREA NITROGEN, BLOOD 7 mg/dL (8-21)
[2022-01-30 07:25] VITALS: BP_SYST 152
--- NOTE | 2022-01-30 07:25 | NUR ---
Opening Note Patient is laying in bed awake. A/O x4. No apparent distress noted. Call light within reach. Safety and fall precautions in place. All needs met.
[2022-01-30 07:45] LABS: ANION GAP 8 (5-15); CALCIUM 10.3 mg/dL (8.4-11.0); CHLORIDE 100 mmol/L (98-107); SODIUM SERUM 138 mmol/L (136-145)
[2022-01-30 08:39] LABS: C-REACTIVE PROTEIN QUANT < 0.2 mg/dL (0-0.5); GFR AFRICAN AMERICAN 106 mL/min (>90)
[2022-01-30] MEDS: amLODIPine BESYLATE 5 MG TABLET PO SCH (09:20)
[2022-01-30] MEDS: buPROPion HCL 75 MG TABLET PO SCH (09:20)
[2022-01-30] MEDS: HYDROCHLOROTHIAZIDE 12.5 MG CAPSULE (HCTZ) PO SCH (09:21)
[2022-01-30] MEDS: busPIRone HCL 5 MG TABLET PO SCH (09:21)
[2022-01-30] MEDS: ONDANSETRON HCL 4 MG/2 ML VIAL IVP PRN (10:53)
[2022-01-30] MEDS ORDERED: KCL 40 mEq in 100 mL (PREMIX) 100 ML IV ONE (11:00)
[2022-01-30 11:11] LABS: ERYTHROCYTE SEDIMENTATION RATE 11 MM/HR (0-20)
--- NOTE | 2022-01-30 11:20 | NUR ---
Note Patient picked up for MRI.
[2022-01-30 11:53] VITALS: BP_SYST 138
[2022-01-30] MEDS: POTASSIUM CHLORIDE 20 mEq in 100 mL (PREMIX) 100 ML x 2 doses IV SCH ×2 (15:00→19:28)
[2022-01-30 16:05] VITALS: BP_SYST 130
--- NOTE | 2022-01-30 18:50 | NUR ---
Closing Note Patient is laying in bed awake. Family at bedside. No apparent distress noted. Call light within reach. Safety and fall precautions in place. All needs met. Will endorse care to assembler 1st shift KEVON Cuellar.
[2022-01-30 20:00] VITALS: BP_SYST 155
[2022-01-31 01:31] VITALS: BP_SYST 135
[2022-01-31] MEDS: SUMAtriptan SUCCINATE 50 MG TABLET PO PRN ×2 (02:09→17:56)
[2022-01-31] MEDS: MORPHINE 4 MG INJ. 4 MG/ML VIAL IVP PRN (02:10)
[2022-01-31] MEDS: HYDROcodone/ACETAMIN 10-325 MG TAB PO PRN ×3 (02:21→21:23)
[2022-01-31 04:00] VITALS: BP_SYST 142
[2022-01-31] MEDS: D5/0.45 NS 1,000 ML IV SCH ×2 (06:00→17:54)
[2022-01-31] MEDS: PROMETHAZINE HCL 25 MG TABLET PO SCH ×3 (06:03→21:24)
[2022-01-31 06:25] LABS: BASOPHILS % (AUTO) 0.6 % (0.0-2.0); EOSINOPHILS # (AUTO) 0.3 K/uL (0.0-0.4); EOSINOPHILS % (AUTO) 3.1 % (0.0-4.0); HEMOGLOBIN 14.4 g/dL (12.0-16.0); LYMPHOCYTES # (AUTO) 2.9 K/uL (1.0-5.5); LYMPHOCYTES % (AUTO) 33.4 % (20.5-51.5); MEAN CORPUSCULAR HEMOGLOBIN 33 pg (27-31); MEAN CORPUSCULAR HGB CONC 34 % (32-36); MEAN CORPUSCULAR VOLUME 96 fL (79.0-98.0); MONOCYTES # (AUTO) 0.8 K/uL (0.0-1.0); MONOCYTES % (AUTO) 9.3 % (1.7-9.3); NEUTROPHILS # (AUTO) 4.7 K/uL (1.8-7.7); NEUTROPHILS % (AUTO) 53.6 % (40.0-70.0); PLATELET COUNT (AUTO) 266 K/uL (130-430); RED BLOOD CELL COUNT(AUTO) 4.36 MIL/uL (4.2-6.2); RED CELL DISTRIBUTION WIDTH 13.4 % (9.0-15.0); WHITE BLOOD COUNT (AUTO) 8.7 K/uL (4.8-10.8)
[2022-01-31 06:36] LABS: ALANINE AMINOTRANSFERASE 58 U/L (12-78); ALBUMIN 2.8 g/dL (3.4-4.8); ANION GAP 2 (5-15); ASPARTATE AMINOTRANSFERASE 18 U/L (10-37); CALCIUM 9.3 mg/dL (8.4-11.0); CHLORIDE 104 mmol/L (98-107); CREATININE 0.65 mg/dL (0.55-1.30); GLUCOSE 108 mg/dL (70-99); POTASSIUM 3.2 mmol/L (3.5-5.1); SODIUM SERUM 140 mmol/L (136-145); TOTAL BILIRUBIN 0.2 mg/dL (0.0-1.0); UREA NITROGEN, BLOOD 7 mg/dL (8-21)
--- NOTE | 2022-01-31 06:39 | NUR ---
PATIENT WAS BEEN UP THE WHOLE NIGHT WITH ON AD OFF SLEEP IN BETWEEN. COMPLAINED OF BAD HEADACHE LAST NIGHT. MEDICATED WITH PRN IMITREX, NORCO, AND MORPHINE AT INTERVALS. AAOX4. VS STABLE. COOPERATIVE. ABLE TO AMBULATE TO THE BATHROOM USING A WALKER. PIV INTACT AND PATENT. KCL RIDER STILL INFUSING AT 10 CC/HR BECAUSE PATIENT IS IN PAIN AT THE IV SITE IF RATE IS FAST. VOIDING WELL, NO STOOL. KEPT WARM AND COMFORTABLE. ALL NEEDS ATTENDED. FALL AND SAFETY PRECAUTIONS REINFORCED. CALL LIGHT PLACED WITHIN REACH. BED ON LOW POSITION. MONITORED CLOSELY.
[2022-01-31 07:23] LABS: C-REACTIVE PROTEIN QUANT < 0.2 mg/dL (0-0.5); GFR AFRICAN AMERICAN 123 mL/min (>90)
[2022-01-31 07:55] VITALS: BP_SYST 160
--- NOTE | 2022-01-31 07:55 | NUR ---
Opening Note Patient is laying in bed awake. A/O x4. No apparent distress noted. Patient complains of lack of sleep, noise reductions in place. Vitals as charted. Call light within reach. Safety and fall precautions in place. All needs met. Received report from Polo LUND.
[2022-01-31 08:29] LABS: ERYTHROCYTE SEDIMENTATION RATE 13 MM/HR (0-20)
[2022-01-31] MEDS: HYDROCHLOROTHIAZIDE 12.5 MG CAPSULE (HCTZ) PO SCH (09:19)
[2022-01-31] MEDS: busPIRone HCL 5 MG TABLET PO SCH (09:19)
[2022-01-31] MEDS: buPROPion HCL 75 MG TABLET PO SCH (09:20)
--- NOTE | 2022-01-31 09:20 | NUR ---
Pain Management Patient complains of pain in legs, lower back, and head. Pain medication given as charted on eMAR.
[2022-01-31] MEDS: ONDANSETRON HCL 4 MG/2 ML VIAL IVP PRN (09:21)
[2022-01-31] MEDS: amLODIPine BESYLATE 5 MG TABLET PO SCH (09:28)
[2022-01-31 12:07] VITALS: BP_SYST 132
[2022-01-31 16:45] VITALS: BP_SYST 142
--- NOTE | 2022-01-31 19:54 | NUR ---
Closing Note Patient is laying in bed awake. No apparent distress noted. Call light within reach. Safety and fall precautions in place. All needs met. Endorsed care to Polo LUND.
[2022-01-31 20:00] VITALS: BP_SYST 167
[2022-02-01] VITALS (7 sets, daily range): BP systolic 129–142
[2022-02-01] MEDS: HYDROcodone/ACETAMIN 10-325 MG TAB PO PRN ×5 (02:41→22:21)
[2022-02-01] MEDS: D5/0.45 NS 1,000 ML IV SCH ×2 (04:38→15:05)
[2022-02-01] MEDS: SUMAtriptan SUCCINATE 50 MG TABLET PO PRN (05:14)
[2022-02-01] MEDS: PROMETHAZINE HCL 25 MG TABLET PO SCH ×3 (05:14→22:01)
--- NOTE | 2022-02-01 06:11 | NUR ---
PATIENT SLEPT ON AND OFF LAST NIGHT. AAOX4. STABLE. NO DISTRESS NOTED. COMPLAINED OF HEADACHE LAST NIGHT AND WAS BEEN MEDICATED WITH PRN PAIN MEDS ORDERED. NOTED WITH REDNESS TO RIGHT UPPER ARM DUE TO IV INFILTRATION. ICE PACK PLACED O THE AFFECTED AREA FOR COMFORT. WALKED TO THE BATHROOM TO VOID. KEPT WARM AND COMFORTABLE. ALL NEEDS ATTENDED. CALL LIGHT PLACED WITHIN REACH. FALL AND SAFETY PRECAUTION REINFORCED. MONITORED CLOSELY.
[2022-02-01 06:46] LABS: BASOPHILS # (AUTO) 0.1 K/uL (0.0-0.2); EOSINOPHILS # (AUTO) 0.3 K/uL (0.0-0.4); EOSINOPHILS % (AUTO) 2.8 % (0.0-4.0); HEMATOCRIT 41.9 % (36-48); HEMOGLOBIN 14.2 g/dL (12.0-16.0); LYMPHOCYTES # (AUTO) 2.6 K/uL (1.0-5.5); LYMPHOCYTES % (AUTO) 22.8 % (20.5-51.5); MEAN CORPUSCULAR HEMOGLOBIN 33 pg (27-31); MEAN CORPUSCULAR HGB CONC 34 % (32-36); MEAN CORPUSCULAR VOLUME 97 fL (79.0-98.0); MONOCYTES # (AUTO) 0.9 K/uL (0.0-1.0); MONOCYTES % (AUTO) 7.7 % (1.7-9.3); NEUTROPHILS # (AUTO) 7.5 K/uL (1.8-7.7); NEUTROPHILS % (AUTO) 65.7 % (40.0-70.0); PLATELET COUNT (AUTO) 249 K/uL (130-430); RED BLOOD CELL COUNT(AUTO) 4.33 MIL/uL (4.2-6.2); RED CELL DISTRIBUTION WIDTH 13.3 % (9.0-15.0); WHITE BLOOD COUNT (AUTO) 11.4 K/uL (4.8-10.8)
[2022-02-01 08:40] LABS: ANION GAP 6 (5-15); CALCIUM 9.9 mg/dL (8.4-11.0); CHLORIDE 102 mmol/L (98-107); CREATININE 0.62 mg/dL (0.55-1.30); GLUCOSE 110 mg/dL (70-99); POTASSIUM 3.2 mmol/L (3.5-5.1); SODIUM SERUM 139 mmol/L (136-145); UREA NITROGEN, BLOOD 7 mg/dL (8-21)
[2022-02-01 08:43] LABS: C-REACTIVE PROTEIN QUANT < 0.2 mg/dL (0-0.5); GFR AFRICAN AMERICAN 130 mL/min (>90)
[2022-02-01] MEDS: amLODIPine BESYLATE 5 MG TABLET PO SCH (09:48)
[2022-02-01] MEDS: buPROPion HCL 75 MG TABLET PO SCH (09:48)
[2022-02-01] MEDS: HYDROCHLOROTHIAZIDE 12.5 MG CAPSULE (HCTZ) PO SCH (09:49)
[2022-02-01] MEDS: busPIRone HCL 5 MG TABLET PO SCH (09:50)
[2022-02-01] MEDS ORDERED: KCL 40 mEq in 100 mL (PREMIX) 100 ML IV ONE (11:00)
[2022-02-01] MEDS ORDERED: POTASSIUM CHLORIDE 40 MEQ in 0.45% NS 250 ML IV ONE (12:30)
[2022-02-01 12:33] LABS: ERYTHROCYTE SEDIMENTATION RATE 14 MM/HR (0-20)
--- NOTE | 2022-02-01 14:31 | NUR ---
Discharge Planning: DCP faxed Letitia at [facility]#[phone] DCP to follow up
[2022-02-02 00:21] VITALS: BP_SYST 136
--- NOTE | 2022-02-02 02:33 | NUR ---
PATIENT C/O PAIN ON R HAND WHERE IV ACCESS LOCATED. UPON ASSESSMENT IV ACCESS WAS RED AND TENDER TO TOUCH. REMOVED IV ACCESS TO THE R HAND AND ATTEMPTED TO ESTABLISH A NEW IV ACCESS X3 BUT UNSUCCESSFUL. EDUCATED PATIENT ON MIDLINE BUT PATIENT STATED THAT I'M GOING HOME TODAY AND I REFUSED TO HAVE THAT LINE. SHE FURTHER STATED THAT MIDLINE SOUNDED SCARY. INFORMED PATIENT THAT IT'S SAFE AND GUIDED BY AN ULTRASOUND AND MOST OF TIME IT'S DONE WITH ONE ATTEMPT, BUT PATIENT CONTINUED TO REFUSE TO HAVE IT. SHE STATED THAT SHE WOULD RATHER TAKE ANTIBIOTIC PO EVEN IT'S GOING TO TAKE HER A YEAR TO TAKE IT.
[2022-02-02] MEDS: PROMETHAZINE HCL 25 MG TABLET PO SCH ×2 (06:00→10:31)
[2022-02-02 06:30] LABS: BASOPHILS % (AUTO) 0.4 % (0.0-2.0); EOSINOPHILS # (AUTO) 0.3 K/uL (0.0-0.4); EOSINOPHILS % (AUTO) 2.6 % (0.0-4.0); HEMATOCRIT 39.4 % (36-48); HEMOGLOBIN 13.5 g/dL (12.0-16.0); LYMPHOCYTES # (AUTO) 2.8 K/uL (1.0-5.5); LYMPHOCYTES % (AUTO) 28.5 % (20.5-51.5); MEAN CORPUSCULAR HEMOGLOBIN 33 pg (27-31); MEAN CORPUSCULAR HGB CONC 34 % (32-36); MEAN CORPUSCULAR VOLUME 96 fL (79.0-98.0); MONOCYTES # (AUTO) 0.9 K/uL (0.0-1.0); MONOCYTES % (AUTO) 8.7 % (1.7-9.3); NEUTROPHILS % (AUTO) 59.8 % (40.0-70.0); PLATELET COUNT (AUTO) 281 K/uL (130-430); RED BLOOD CELL COUNT(AUTO) 4.09 MIL/uL (4.2-6.2); RED CELL DISTRIBUTION WIDTH 13.3 % (9.0-15.0)
[2022-02-02 06:54] LABS: ALBUMIN 2.9 g/dL (3.4-4.8); CALCIUM 9.8 mg/dL (8.4-11.0); CREATININE 0.58 mg/dL (0.55-1.30); POTASSIUM 3.5 mmol/L (3.5-5.1); TOTAL BILIRUBIN 0.3 mg/dL (0.0-1.0)
[2022-02-02 08:00] VITALS: BP_SYST 140
[2022-02-02] MEDS: D5/0.45 NS 1,000 ML IV SCH ×2 (10:00)
[2022-02-02 10:16] LABS: C-REACTIVE PROTEIN QUANT 1.6 mg/dL (0-0.5)
[2022-02-02] MEDS: buPROPion HCL 75 MG TABLET PO SCH (10:56)
[2022-02-02] MEDS: busPIRone HCL 5 MG TABLET PO SCH (10:56)
[2022-02-02] MEDS: amLODIPine BESYLATE 5 MG TABLET PO SCH (10:57)
[2022-02-02] MEDS: HYDROcodone/ACETAMIN 10-325 MG TAB PO PRN (10:57)
[2022-02-02] MEDS: HYDROCHLOROTHIAZIDE 12.5 MG CAPSULE (HCTZ) PO SCH (10:58)
[2022-02-02] MEDS ORDERED: LEVO250T43 PO (11:47)
[2022-02-02] MEDS ORDERED: ONDA-8 TL (11:47)
[2022-02-02] MEDS ORDERED: IMI50 PO (11:47)
[2022-02-02 12:00] VITALS: BP_SYST 137
[2022-02-02 12:19] LABS: ERYTHROCYTE SEDIMENTATION RATE 23 MM/HR (0-20)
[2022-02-02 16:04] VITALS: BP_SYST 140
--- NOTE | 2022-02-02 16:11 | NUR ---
Attempted PT visit, pt refused states she will be discharging today and will resume Home Health PT. RN made aware.
--- NOTE | 2022-02-02 16:45 | NUR ---
Miss Haynes has been assessed as indicated. She has been DC to home at this time. IV access did not need to be removed as she had lost her access this am and refused to have it replaced. DC instructions were reviewed. expressed that she understood and signed a document to indicate this. RX were at her pharmacy of choice and this was verified by this technical proposal writer. She was compliant with the plan to DC to home. At the time of DC she had no s/s of distress or discomfort. She was escorted to the front door via WC and was driven home by her daughter in a private vehicle
== END 2022-02-02 16:45 | disposition home or self-care (01) | DRG 720 ==
LOC: SED 22:59 → STU 01-26 08:00 → SMU 01-27 13:52
PROVIDERS: ADMIT Preventive Medicine Preventive Medicine/Occupational Environmental Medicine; ATTEND Preventive Medicine Preventive Medicine/Occupational Environmental Medicine
DX: A41.9 Sepsis, unspecified organism (principal); E88.09 Other disorders of plasma-protein metabolism, not elsewhere classified; N12 Tubulo-interstitial nephritis, not specified as acute or chronic; E87.6 Hypokalemia; E66.01 Morbid (severe) obesity due to excess calories; E83.52 Hypercalcemia; F32.A Depression, unspecified; G44.1 Vascular headache, not elsewhere classified; B96.89 Other specified bacterial agents as the cause of diseases classified elsewhere; F41.9 Anxiety disorder, unspecified; G43.909 Migraine, unspecified, not intractable, without status migrainosus; G89.4 Chronic pain syndrome; I10 Essential (primary) hypertension; J45.909 Unspecified asthma, uncomplicated; M19.90 Unspecified osteoarthritis, unspecified site; M79.7 Fibromyalgia; N39.0 Urinary tract infection, site not specified; R74.01 Elevation of levels of liver transaminase levels; Z20.822 Contact with and (suspected) exposure to COVID-19; Z98.891 History of uterine scar from previous surgery; Z90.710 Acquired absence of both cervix and uterus; Z68.36 Body mass index [BMI] 36.0-36.9, adult
CPT/HCPCS: 36415; 70450-TC; 70551; 71045; 72125-TC; 76376; 80048; 80053; 81000; 83605; 83735; 84100; 84484; 85025; 85610-TC; 85651-TC; 85730-TC; 86140; 87040; 87086; 93005; 96365; 96366; 96367; 96374; 96375; 97116-GP; 99285; G0378; J0360; J1170; J1956; J2060; J2270; J2405; J2765; J3030; J3475; J3480; Q0169

== ENCOUNTER 2023-03-20 17:15 | Emergency (ER) | payer MEDICAID ==
[~2023-03-20] VITALS: Ht 162.6 cm; Wt 105.2 kg
[~2023-03-20 17:15] MED LIST changes: +AMLO2.5T2 PO; +BUPR75TA20 PO; +BUSP30TA2 PO; +HYDR12.55 PO; +IMI50 PO; +LEVO250T73 PO; +ONDA-8 TL
[2023-03-20 17:28] VITALS: BP_SYST 118; PULSE 93; RESP 18; TEMP 98.3; O2SAT 90
[2023-03-20 18:05] LABS: BILIRUBIN,URINE NEGATIVE (NEGATIVE); COLOR,URINE YELLOW (YELLOW); GLUCOSE,URINE NEGATIVE (NEGATIVE); KETONES,URINE NEGATIVE (NEGATIVE); LEUKOCYTE ESTERASE ,URINE 2+ (NEGATIVE); NITRITE, URINE NEGATIVE (NEGATIVE); PROTEIN URINE NEGATIVE (NEGATIVE); UROBILINOGEN,URINE 0.2 (0.2-1.0)
[2023-03-20 18:09] LABS: BASOPHILS # (AUTO) 0.1 K/uL (0.0-0.2); EOSINOPHILS # (AUTO) 0.2 K/uL (0.0-0.4); EOSINOPHILS % (AUTO) 1.9 % (0.0-4.0); HEMATOCRIT 41.6 % (36-48); LYMPHOCYTES # (AUTO) 3.5 K/uL (1.0-5.5); LYMPHOCYTES % (AUTO) 29.7 % (20.5-51.5); MEAN CORPUSCULAR HEMOGLOBIN 32 pg (27-31); MEAN CORPUSCULAR HGB CONC 34 % (32-36); MEAN CORPUSCULAR VOLUME 96 fL (79.0-98.0); MONOCYTES % (AUTO) 8.5 % (1.7-9.3); NEUTROPHILS % (AUTO) 58.9 % (40.0-70.0); PLATELET COUNT (AUTO) 387 K/uL (130-430); RED BLOOD CELL COUNT(AUTO) 4.34 MIL/uL (4.2-6.2); RED CELL DISTRIBUTION WIDTH 12.8 % (9.0-15.0); WHITE BLOOD COUNT (AUTO) 11.8 K/uL (4.8-10.8)
[2023-03-20 18:16] LABS: BLOOD, URINE TRACE (NEGATIVE); CLARITY/URINE SLIGHTLY CLOUDY (CLEAR)
[2023-03-20 18:18] LABS: BACTERIA,URINE MANY /HPF (None Seen); WBC,URINE 50-80 /HPF (0-3)
[2023-03-20 18:31] LABS: ALBUMIN 3.8 g/dL (3.4-4.8); CALCIUM 10.8 mg/dL (8.4-11.0); CREATININE 0.93 mg/dL (0.55-1.30); TOTAL BILIRUBIN 0.2 mg/dL (0.0-1.0); TOTAL PROTEIN, SERUM 8.3 g/dL (6.4-8.3)
[2023-03-20] MEDS ORDERED: levoFLOXacin 500 MG TABLET PO ONE (19:45)
[2023-03-20] MEDS ORDERED: LEVO750T64 PO (19:46)
[2023-03-20 20:00] VITALS: BP_SYST 138; PULSE 96; RESP 18; TEMP 98.9; O2SAT 98
[2023-03-20] MEDS ORDERED: POTASSIUM CHLORIDE 20 MEQ TAB.PRT.SR PO ONE (20:00)
== END 2023-03-20 20:00 | disposition home or self-care (01) ==
LOC: SED 17:15
DX: N39.0 Urinary tract infection, site not specified (principal); E87.6 Hypokalemia; R39.15 Urgency of urination; J45.909 Unspecified asthma, uncomplicated; I10 Essential (primary) hypertension; Z88.1 Allergy status to other antibiotic agents; Z88.6 Allergy status to analgesic agent; Z88.7 Allergy status to serum and vaccine; Z79.899 Other long term (current) drug therapy
CPT/HCPCS: 36415; 80053; 81000; 83690; 85025; 87086; 99283